=== PATIENT | female | born 1955 | race Caucasian/White ===

== ENCOUNTER 2024-05-10 08:50 | Emergency (ER) | payer OTHER ==
[~2024-05-10] VITALS: Ht 157.5 cm; Wt 54.4 kg
[2024-05-10 09:08] VITALS: BP_SYST 141; PULSE 85; RESP 22; TEMP 98.3; O2SAT 98
[2024-05-10] MEDS: DIPHENHYDRAMINE HCL 12.5 MG/5 ML UDC PO ONE (09:46)
[2024-05-10] MEDS: KETAMINE HCL 500 MG/10 ML VIAL IVP ONE (11:51)
[2024-05-10 18:01] VITALS: BP_SYST 124; PULSE 78; RESP 20; TEMP 98; O2SAT 100
== END 2024-05-10 18:01 | disposition home or self-care (01) ==
LOC: SED 08:50
DX: S60.444A External constriction of right ring finger, initial encounter (principal); W49.04XA Ring or other jewelry causing external constriction, initial encounter; Y93.89 Activity, other specified; Y92.89 Other specified places as the place of occurrence of the external cause; Y99.8 Other external cause status
CPT/HCPCS: 96374; 99285